=== PATIENT | female | born 1980 | race Two or more races ===

== ENCOUNTER 2018-08-28 14:27 | Emergency (ER) | payer MEDICAID ==
[2018-08-28] MEDS: IBUPROFEN 600 MG TAB PO (15:39)
== END 2018-08-28 16:25 | disposition home or self-care (01) ==
LOC: FTE 14:27
DX: J11.1 Influenza due to unidentified influenza virus with other respiratory manifestations (principal)
CPT/HCPCS: 71045; 99283-25